=== PATIENT | male | born 1990 | race Caucasian/White ===

== ENCOUNTER → 2016-08-17 | Outpatient (CLI) | payer BC ==
--- NOTE | 2016-08-17 14:14 | Diagnostic Imaging Report ---
PROCEDURE: MRI right joint lower extremity without contrast. TECHNIQUE: Multiplanar/multisequence noncontrast enhanced MRI of the right lower extremity was accomplished. INDICATION: Right knee pain after injury. FINDINGS: There are bone marrow contusions involving the femoral condyles, mostly in the lateral condyle and in the tibial plateau posteriorly, lateral more than medial. There is also a soft tissue contusion seen along the lateral aspect of the knee with a partial tear involving the anterior fibers of the fibulocollateral ligament and the posterior fibers of the tensor fascia juan f components of the lateral collateral ligament complex. There is also a mild sprain of the MCL. There is a full-thickness tear of the ACL with retraction of the fibers. The PCL is intact. The medial meniscus and the lateral meniscus are both intact. There is a muscle sprain involving the popliteus muscle extending to the myotendinous junction with a small hematoma around the popliteus myotendinous junction. There is no Means's cyst. The extensor mechanism is intact. The contour of the undersurface of the lateral femoral condyle laterally is slightly flattened which could be from the injury. The overlying cartilage, however, appears intact with no osteochondral lesion or other abnormality identified. IMPRESSION: 1. Full-thickness tear of the ACL. 2. MCL and lateral collateral ligament complex sprains. 3. Partial tear and hematoma along the myotendinous junction of the popliteus. 4. Bone marrow contusions and slight flattening of the undersurface of the lateral femoral condyle, probably post traumatic, with no displaced or microscopic fracture line seen otherwise. Dictated by: Dictated on workstation # [id number]
== END ==
LOC: RAD 11:01
PROVIDERS: ATTEND Orthopaedic Surgery
DX: M23.361 Other meniscus derangements, other lateral meniscus, right knee (principal); M23.611 Other spontaneous disruption of anterior cruciate ligament of right knee
CPT/HCPCS: 73721

== ENCOUNTER → 2017-02-08 | Outpatient (CLI) | payer BC ==
--- NOTE | 2017-02-08 10:04 | Diagnostic Imaging Report ---
INDICATION: Previous ACL repair. COMPARISON: MR dated 08/17/2016 FINDINGS: 3 radiographic views of the right knee were obtained. [place] screws are noted within the distal femur and proximal tibia consistent with previous ACL repair. No unexpected radiopaque foreign bodies are seen. There is no radiographic evidence of acute fracture or dislocation of the right knee. Joint spaces are maintained. There is a small suprapatellar joint effusion. IMPRESSION: 1. Expected metallic hardware consistent with interval ACL repair. No unexpected radiopaque foreign bodies are seen. 2. Small suprapatellar joint effusion. 3. No evidence of acute fracture or dislocation. Dictated by: Dictated on workstation # [id number]
== END ==
LOC: RAD 08:52
PROVIDERS: ATTEND Orthopaedic Surgery
DX: M25.461 Effusion, right knee (principal); Z98.890 Other specified postprocedural states
CPT/HCPCS: 73562

== ENCOUNTER → 2017-09-08 | Outpatient (CLI) | payer BC ==
--- NOTE | 2017-09-08 16:53 | Diagnostic Imaging Report ---
EXAM: TESTICULAR/SCROTUM ULTRASOUND DATE: September 08, 2017. COMPARISON: None. INDICATION: 27-year-old male, testicular pain. PROCEDURE: Two-dimensional grayscale , spectral Doppler and color Doppler ultrasound examination of the testes is performed. FINDINGS: Right testicle. The right testicle has normal contour and is without mass. There is flow . The right testicle measures 5.1 cm x 2.8 cm x 3.2 cm. Left testicle: The left testicle has normal contour and is without mass. There is flow . The left testicle measures 5.2 cm x 2.4 cm x 3.5 cm. The right and left epididymides are unremarkable in appearance without hypervascularity. There is a small right hydrocele. There is no demonstrated hernia. IMPRESSION: 1. Small right hydrocele. 2. No evidence of testicular torsion, orchitis, or epididymitis. 3. No identified hernia. Dictated by: Dictated on workstation # [id number]
== END ==
LOC: RAD 13:57
PROVIDERS: ATTEND Nurse Practitioner Family
DX: N43.3 Hydrocele, unspecified (principal)
CPT/HCPCS: 76870

== ENCOUNTER 2018-01-02 11:26 | Emergency (ER) | payer BC ==
[~2018-01-02] VITALS: Ht 188 cm; Wt 99.8 kg
--- NOTE | 2018-01-02 11:48 | ED GI ---
General Chief Complaint: Rect Problems Stated Complaint: RUPTURED HEMORRHOID//UNCONTROLLED BLEEDING Nursing Triage Note: PT STATES HAS HEMORRHOIDS, THAT WONT QUIT BLEEDING, STATES HAS HAD THEM FOR A WEEK Sepsis Screen: No Definite Risk Source of Information: Patient Exam Limitations: No Limitations History of Present Illness Date Seen by Provider: Jan 02, 2018 Time Seen by Provider: 11:43 Initial Comments To ER with a bleeding hemorrhoid. Has had troubles with hemorrhoids since high school. He developed this particular hemorrhoid about a week ago and at the time of onset it was painful. Yesterday, it began bleeding after a bowel movement. States it was dripping rather briskly into the toilet. The pain has improved however. Timing/Duration: 1 Week Severity/Quality: Mild Allergies and Home Medications Allergies Coded Allergies: No Known Drug Allergies (Unverified , 01/02/18) Home Medications No Active Prescriptions or Reported Meds Patient Home Medication List Home Medication List Reviewed: Yes Review of Systems Constitutional: see HPI EENTM: No Symptoms Reported Respiratory: No Symptoms Reported Cardiovascular: No Symptoms Reported Gastrointestinal: See HPI Genitourinary: No Symptoms Reported Musculoskeletal: no symptoms reported Skin: no symptoms reported Psychiatric/Neurological: No Symptoms Reported, Emotional Problems Past Lbhdftf-Tengzj-Eoxtue Hx Patient Social History Alcohol Use: Regular Use Number of Drinks Today: 0 Recreational Drug Use: No Smoking Status: Never a Smoker Recent Foreign Travel: No Contact w/Someone Who Travel: No Recent Infectious Disease Expo: No Physical Abuse: No Sexual Abuse: No Past Medical History Nursing Suicide Risk Score: 0 Physical Exam Vital Signs Vital Signs - First Documented 01/02/18 11:30 Temp 97.2 Pulse 65 Resp 18 B/P (MAP) 153/59 (90) Pulse Ox 99 Capillary Refill : Less Than 3 Seconds Height/Weight/BMI Height: 6'2.00" Weight: 220lbs. oz. [id number]; BMI Method:Stated General Appearance: WD/WN, no apparent distress HEENT: PERRL/EOMI, normal ENT inspection Neck: non-tender, full range of motion Respiratory: no respiratory distress, no accessory muscle use Gastrointestinal: normal bowel sounds, non tender, soft Genital/Rectal: other (right sided 1cm hemorrhoid with eschar and an abraded appearing surface. No active bleeding currently. Minimally tender. This appears to be an external hemorrhoid rather than a prolapsed internal hemorrhoid. ) Neurologic/Psychiatric: alert, normal mood/affect, oriented x 3 Skin: normal color, warm/dry Progress/Results/Core Measures Results/Orders Vital Signs/I&O 01/02/18 11:30 Temp 97.2 Pulse 65 Resp 18 B/P (MAP) 153/59 (90) Pulse Ox 99 Blood Pressure Mean: 90 Departure Impression Primary Impression: Hemorrhoids Disposition: HOME, SELF-CARE Condition: Stable Departure-Patient Inst. Decision time for Depature: 11:46 Referrals: BENJI FRY BRETT D DO JENKINS, XAVIER M MD KIDO, TAKAAKI MD PARKS,MOUNIKA Ortiz MD (PCP) Primary Care Physician Patient Instructions: Hemorrhoids (DC) Add. Discharge Instructions: 1. Continue to use Preparation H, you may also apply Tucks Pad which you may purchase at [facility] or [facility]. Just use gauze to help collect a small amount of bleeding which may persist for 2-3 days. The bleeding well increases immediately after a bowel movement. Take a Colace which you can also buy over- the-counter as a stool softener to help limit the effect of bowel movements on this hemorrhoid. Call a surgeon of your choosing for follow-up within 2-3 weeks. Scripts No Active Prescriptions or Reported Meds Copy Copies To 1: DWIGHT EID PETER J APRN Jan 02, 2018 11:48
[2018-01-02 11:50] VITALS: BP 153/59
== END 2018-01-02 11:50 | disposition home or self-care (01) ==
LOC: EDUNIT# 11:26 → ER 11:29
DX: K64.4 Residual hemorrhoidal skin tags (principal)
CPT/HCPCS: 99282

== ENCOUNTER 2018-01-10 17:30 | Emergency (ER) | payer BC ==
[~2018-01-10] VITALS: Ht 188 cm; Wt 99.8 kg
[2018-01-10] MEDS ORDERED: LIDOCAINE 1% INJ 20 ML 20 ML VIAL INJ ONE (17:45)
--- NOTE | 2018-01-10 17:50 | ED Integumentary General ---
General Stated Complaint: LEG INFECTION Source: patient, family Exam Limitations: no limitations History of Present Illness Date Seen by Provider: Jan 10, 2018 Time Seen by Provider: 17:35 Initial Comments Patient is a 27-year-old male who presents to the emergency room with complaints infection to right leg. He has previously been treated for poison monet and he thinks that he scratched an area and has become infected. He no longer has poison monet but has an abscess to his right inner calf, previous location of poison monet. He states that about a week ago it started as what he thought was a pimple and he popped it and he reports that it just started getting bigger since then. He states that he was started on Keflex yesterday by his nurse practitioner but started running a fever and having generalized body aches today. He states that he's had one dose of the Keflex. Timing/Duration: week Location: extremities (right lower extremity) Possible Cause: no cause identified Associated Symptoms: fever Allergies and Home Medications Allergies Coded Allergies: No Known Drug Allergies (Unverified , 01/10/18) Home Medications Sulfamethoxazole/Trimethoprim 1 Each Tablet, 1 EACH PO BID Prescribed by: DILMA CHAUHAN on 01/10/18 [id number] Patient Home Medication List Home Medication List Reviewed: Yes Constitutional: see HPI, chills, fever, malaise Skin: see HPI, other (abscess to his right inner calf) All Other Systems Reviewed Negative Unless Noted: Yes Past Euuptcv-Vvgnov-Cwbdni Hx Past Med/Social Hx: Reviewed Nursing Past Med/Soc Hx Family Medical History Reviewed Nursing Family Hx Physical Exam Vital Signs Vital Signs - First Documented 01/10/18 17:32 Temp 99.0 Pulse 72 Resp 18 B/P (MAP) 136/84 (101) Pulse Ox 98 Capillary Refill : General Appearance: WD/WN, no apparent distress HEENT: PERRL/EOMI, normal ENT inspection, TMs normal, pharynx normal Cardiovascular: regular rate, rhythm, no edema, no gallop, no JVD, no murmur Respiratory: chest non-tender, lungs clear, normal breath sounds, no respiratory distress, no accessory muscle use Skin: normal color, warm/dry Skin Problem Location: lower extremities (right inner calf) Skin Problem Character: abscess, erythema, warm, other (there is an 8 cm in diameter area of indurated and erythematous to the right inner calf. There is a 2 cm in the area in diameter central punctum with serous drainage and is very fluctuant.) Procedures/Interventions I&D : Blade Size: 11 I & D Procedure: gauze wick placed Packing/Drain: Idoform / Progress Anesthetized with 4 mL of 1% lidocaine without epinephrine. Open with a 1 cm incision using an 11 blade scalpel. A moderate amount of purulent material was expressed. Culture collected and sent to lab. Wound cavity then irrigated with Betadine/saline solution then packed with a couple inches of quarter-inch iodoform covered with gauze. Progress/Results/Core Measures Results/Orders Lab Results Laboratory Tests Test 01/10/18 17:46 Range/Units White Blood Count 16.2 H 4.3-11.0 10^3/uL Red Blood Count 5.06 4.35-5.85 10^6/uL Hemoglobin 15.0 13.3-17.7 G/DL Hematocrit 43 40-54 % Mean Corpuscular Volume 85 80-99 FL Mean Corpuscular Hemoglobin 30 25-34 PG Mean Corpuscular Hemoglobin Concent 35 32-36 G/DL Red Cell Distribution Width 13.4 10.0-14.5 % Platelet Count 269 130-400 10^3/uL Mean Platelet Volume 9.0 7.4-10.4 FL Neutrophils (%) (Auto) 77 H 42-75 % Lymphocytes (%) (Auto) 12 12-44 % Monocytes (%) (Auto) 10 0-12 % Eosinophils (%) (Auto) 1 0-10 % Basophils (%) (Auto) 0 0-10 % Neutrophils # (Auto) 12.5 H 1.8-7.8 X 10^3 Lymphocytes # (Auto) 1.9 1.0-4.0 X 10^3 Monocytes # (Auto) 1.6 H 0.0-1.0 X 10^3 Eosinophils # (Auto) 0.2 0.0-0.3 10^3/uL Basophils # (Auto) 0.0 0.0-0.1 10^3/uL Neutrophils % (Manual) 65 % Lymphocytes % (Manual) 27 % Monocytes % (Manual) 6 % Eosinophils % (Manual) 0 % Basophils % (Manual) 0 % Metamyelocytes % 1 % Band Neutrophils 1 % Blood Morphology Comment NORMAL Sodium Level 138 135-145 MMOL/L Potassium Level 4.0 3.6-5.0 MMOL/L Chloride Level 103 98-107 MMOL/L Carbon Dioxide Level 24 21-32 MMOL/L Anion Gap 11 5-14 MMOL/L Blood Urea Nitrogen 19 H 7-18 MG/DL Creatinine 1.26 0.60-1.30 MG/DL Estimat Glomerular Filtration Rate > 60 BUN/Creatinine Ratio 15 Glucose Level 112 H 70-105 MG/DL Lactic Acid Level 0.75 0.50-2.00 MMOL/L Calcium Level 9.5 8.5-10.1 MG/DL Corrected Calcium 8.5-10.1 MG/DL Total Bilirubin 0.6 0.1-1.0 MG/DL Aspartate Amino Transf (AST/SGOT) 20 5-34 U/L Alanine Aminotransferase (ALT/SGPT) 21 0-55 U/L Alkaline Phosphatase 54 40-136 U/L Total Protein 7.6 6.4-8.2 GM/DL Albumin 4.9 H 3.2-4.5 GM/DL Micro Results Microbiology 01/10/18 Blood Culture - Preliminary, Resulted No growth 01/10/18 Blood Culture - Preliminary, Resulted No growth 01/10/18 Gram Stain - Final, Complete 01/10/18 Wound Culture - Final, Complete Staphylococcus aureus My Orders Orders - DILMA CHAUHAN Cbc With Automated Diff (01/10/18 17:41) Comprehensive Metabolic Panel (01/10/18 17:41) Blood Culture (01/10/18 17:41) Saline Lock/Iv-Start (01/10/18 17:41) Saline Lock/Iv-Start (01/10/18 17:41) Lactic Acid Analyzer (01/10/18 17:41) Lidocaine 1% Inj 20 Ml (Xylocaine 1% Inj (01/10/18 17:45) Wound Culture (01/10/18 17:42) Manual Differential (01/10/18 17:46) Ceftriaxone Injection (Rocephin Injectio (01/10/18 18:30) Medications Given in ED Vital Signs/I&O 01/10/18 01/10/18 17:32 19:15 Temp 99.0 Pulse 72 76 Resp 18 18 B/P (MAP) 136/84 (101) 125/70 Pulse Ox 98 98 Progress Progress Note : Time: 18:30 Progress Note I have seen and evaluated the patient. The patient was instructed to stop the Keflex and start the prescription for Bactrim. He agrees with plans of care, plans for discharge, and return precautions. Departure Impression Primary Impression: Abscess Additional Impression: Cellulitis Qualified Codes: L03.115 - Cellulitis of right lower limb Disposition: HOME, SELF-CARE Condition: Stable/Unchanged Departure-Patient Inst. Decision time for Depature: 18:49 Referrals: XIMENA LOPEZ MD, SANDRA L MD (PCP) Primary Care Physician Patient Instructions: ABSCESS, Cellulitis (Skin Infection), Adult (DC) Add. Discharge Instructions: Take medication as directed. You may use ibuprofen and Tylenol as directed by the bottle for pain and fever. Stop the Keflex. Follow up with Dr. Lopez office within 1 week for recheck. If the packing has not fallen out within 2 days simply pull on the wick to remove it. Be sure to complete your entire course of antibiotics. Return back to the emergency room for any worsening symptoms, pain, fevers, or any other concerns as needed. Scripts Sulfamethoxazole/Trimethoprim (Bactrim Ds Tablet) 1 Each Tablet 1 EACH PO BID for 10 Days, #20 TAB Prov: DILMA CHAUHAN 01/10/18 Images Extremities-Lower 1 - Cellulitis, Other-See Progress Note DILMA CHAUHAN Jan 10, 2018 17:50
[2018-01-10 17:56] LABS: BASOPHILS % (AUTO) 0 % (0-10); EOSINOPHILS # (AUTO) 0.2 10^3/uL (0.0-0.3); EOSINOPHILS % (AUTO) 1 % (0-10); HEMATOCRIT 43 % (40-54); LYMPHOCYTES # (AUTO) 1.9 X 10^3 (1.0-4.0); LYMPHOCYTES % (AUTO) 12 % (12-44); MEAN CORPUSCULAR HEMOGLOBIN 30 PG (25-34); MEAN CORPUSCULAR HGB CONC 35 G/DL (32-36); MEAN CORPUSCULAR VOLUME 85 FL (80-99); MONOCYTES # (AUTO) 1.6 X 10^3 (0.0-1.0); MONOCYTES % (AUTO) 10 % (0-12); NEUTROPHILS # (AUTO) 12.5 X 10^3 (1.8-7.8); NEUTROPHILS % (AUTO) 77 % (42-75); PLATELET COUNT 269 10^3/uL (130-400); RED BLOOD COUNT 5.06 10^6/uL (4.35-5.85); RED CELL DISTRIBUTION WIDTH 13.4 % (10.0-14.5); WHITE BLOOD COUNT 16.2 10^3/uL (4.3-11.0)
[2018-01-10 18:16] LABS: ALANINE AMINOTRANSFERASE 21 U/L (0-55); ALBUMIN 4.9 GM/DL (3.2-4.5); ALKALINE PHOSPHATASE 54 U/L (40-136); BILIRUBIN,TOTAL 0.6 MG/DL (0.1-1.0); BUN/CREATININE RATIO 15; CALCIUM 9.5 MG/DL (8.5-10.1); CARBON DIOXIDE 24 MMOL/L (21-32); CHLORIDE 103 MMOL/L (98-107); CREATININE SERUM 1.26 MG/DL (0.60-1.30); GFR ESTIMATED > 60; GLUCOSE 112 MG/DL (70-105); SODIUM 138 MMOL/L (135-145); TOTAL PROTEIN 7.6 GM/DL (6.4-8.2)
[2018-01-10 18:19] LABS: BAND NEUTROPHILS 1 %; BASOPHILS % (MANUAL) 0 %; EOSINOPHILS % (MANUAL) 0 %; LYMPHOCYTES % (MANUAL) 27 %; METAMYELOCYTES % 1 %; MONOCYTES % (MANUAL) 6 %; NEUTROPHILS % (MANUAL) 65 %; RBC MORPH NORMAL
[2018-01-10] MEDS ORDERED: cefTRIAXone INJECTION 1,000 MG in NS (IVPB) 50 ML IV ONE (18:30)
[2018-01-10] MEDS ORDERED: SULF1TAB35 PO (18:49)
[2018-01-10 19:15] VITALS: BP 125/70
== END 2018-01-10 19:21 | disposition home or self-care (01) ==
LOC: EDUNIT# 17:30 → ER 17:31
DX: L02.415 Cutaneous abscess of right lower limb (principal); L03.115 Cellulitis of right lower limb
CPT/HCPCS: 10061; 36415; 80053; 83605; 85007; 85027; 87040; 87070; 87077; 87205